=== PATIENT | female | born 1945 | race African-American/Black ===

== ENCOUNTER 2022-08-22 21:04 | Emergency (ER) | payer BC ==
[~2022-08-22] VITALS: Ht 172.7 cm; Wt 72.6 kg
[2022-08-22] MEDS ORDERED: ZESTRIL2.5 MG (21:21)
== END 2022-08-23 03:22 | disposition home or self-care (01) ==
LOC: ER 21:04
DX: R07.9 Chest pain, unspecified (principal); I10 Essential (primary) hypertension; F03.90 Unspecified dementia, unspecified severity, without behavioral disturbance, psychotic disturbance, mood disturbance, and anxiety; Z20.822 Contact with and (suspected) exposure to COVID-19